=== PATIENT | male | born 1965 | race Caucasian/White ===

== ENCOUNTER 2023-01-19 12:59 | Outpatient (AMB) | payer MEDICARE, MEDICAID, SELFPAY ==
--- NOTE | 2023-01-19 13:01 | MHC.OFFVIS ---
Intake Intake Visit Reasons: Hx BPH/Micro Hematuria Intake Note: New Patient presents for initial visit Hx BPH/Micro Hematuria Urology Medications: Tamsulosin Blood Thinner: none PVR: 47ml's Propeller Layout Worker Required: Yes Propeller Layout Worker Name: michael Accompanied by: Self / Same As Patient Allergies enalapril Allergy (Verified 01/19/23 13:24) lip swelling, hives aspirin Adverse Reaction (Verified 01/19/23 13:24) Unknown contrast dye Adverse Reaction (Uncoded 01/19/23 13:24) Unknown Medication List - Last Reconciled 01/19/23 by Nataliya Ayers, [facility]- [id number]-[id number]-grdfavp 600-50-300 mg (Triumeq) 1 tab PO DAILY atorvastatin 20 mg PO DAILY budesonide-formoterol 160-4.5 mcg/actuation (Symbicort) inhalation carvedilol 12.5 mg PO BID dulaglutide (Trulicity) mg subcut hydrochlorothiazide 25 mg PO DAILY insulin detemir U-100 (Levemir FlexPen) units subcut metformin 1,000 mg PO BID omeprazole 20 mg PO DAILY terazosin 1 mg PO DAILY valacyclovir 500 mg PO DAILY HPI HPI Comments History of Present Illness Details Hua is a pleasant 57-year-old male patient of Dr. Segovia. He has a past medical history of allergic rhinitis, asthma, BPH with urinary obstruction, chronic anticoagulation, complex sleep apnea syndrome, COPD, depression, diabetes mellitus, diabetic retinopathy, DVT, erectile dysfunction, fatty liver, gastritis, hemorrhoids, hiatal hernia, HIV, hypertension, hypercholesteremia, hypogonadism, low back pain, micro hematuria, morbid obesity, osteoarthritis, pulmonary embolism, and vitamin-D deficiency. He presents to the office today as a new patient for microscopic hematuria. In discussion with the patient today he reports following up with the previous urologist many years ago in undergoing microscopic hematuria workup that he reports was negative. He discusses undergoing an office cystoscopy previously and did not find this comfortable. He is also reporting right-sided scrotal tenderness with intermittent episodes of pain and erectile dysfunction. When asked he does report urinary hesitancy and dribbling however he denies urinary urgency, urinary frequency, incontinence, nocturia, dysuria, foul smelling urine, flank pain, fever, and or chills. In assessment of the patient today significant right-sided epididymal head tenderness and tenderness upon right-sided groin upon palpation otherwise no masses, nodules, or lesions noted. There are no open areas or drainage noted. There is mild erythema to the right side of the scrotum. WILMA; smooth and no suspicious nodules palpated. Discussed at length potential causes for microscopic hematuria. When asked patient denies any previous smoking history. He denies any known chemical exposures. Discussed at length affects of diabetes on urinary system, ED, and overall health and well-being. Discussed obtaining retroperitoneal and scrotal ultrasound for further assessment evaluation. He will otherwise offers no issues or concerns at this time. [facility] Medical History (Updated 01/19/23 @ 20:34 by MIRA Rhoades) Allergic rhinitis Asthma BPH with urinary obstruction Chronic anticoagulation Complex sleep apnea syndrome COPD (chronic obstructive pulmonary disease) Depression Diabetes mellitus Diabetic retinopathy DVT (deep venous thrombosis) Erectile dysfunction Fatty liver Gastritis GERD (gastroesophageal reflux disease) Hemorrhoids Hiatal hernia HIV (human immunodeficiency virus infection) Hypertension Hypertriglyceridemia without hypercholesterolemia Hypogonadism male Lichen planus Low back pain Microhematuria Morbid obesity with BMI of 45.0-49.9, adult AVINASH (obstructive sleep apnea) Osteoarthritis of right hip Osteoarthritis of right knee Pulmonary embolism Right groin pain Severe obesity Thrombophilia Vitamin D deficiency Surgical History History of colonoscopy Review of Systems Const Reports as per HPI Eyes Reports no additional complaints ENT Reports no additional complaints Card Reports as per HPI Resp Reports as per HPI GI Reports as per HPI Reports as per HPI Musc Reports as per HPI Neuro Reports as per HPI Psych Reports as per HPI Endo Reports as per HPI Bennett/Lymph Reports as per HPI Aller/Immun Reports as per HPI Physical Exam Const General: cooperative, comfortable, no acute distress, well developed, alert and awake Nutritional Appearance: obese Orientation/consciousness: patient oriented x3 Limitations: no limitations HEENT Head: Yes normal to inspection, Yes normocephalic and Yes atraumatic Ears: hearing grossly normal bilaterally Eyes General: appearance normal, both eyes and all related structures Neck Neck: Yes normal visual inspection and Yes trachea midline Chest Chest palpation & inspection: normal inspection of the chest Resp Effort & Inspection: normal respiratory effort and able to speak in complete sentences Cardio Rate: regular rate GI Inspection: Yes normal to inspection General: Yes no CVA tenderness Penis: normal penis and uncircumcised Testes: epididymal tenderness on the right Back/Spine/Pelvis Back: no CVA tenderness Skin General skin exam: no rashes or lesions noted Neuro General: patient oriented x3 Extrem General: Yes normal to inspection Psych Appearance: grossly normal and well kempt Mental Status: mental status grossly normal Speech and movement: Normal speech and movement present and Clear speech present Affect: normal affect Attitude: cooperative Thought process: Normal thought process present Thought content: Normal thought content present Insight: Fair insight present (Psych) Judgement: Fair judgement present (Psych) Office Procedures Post Void Residual Post Residual Void Post Void Residual (PVR): 47 [id number] Void Residual by ultrasound Results AMB Urinalysis, Automated UA Leukoctes 0 Laya/uL Last Edit by [employer] on 01/19/23 13:20 UA Nitrite Last Edit by [employer] on 01/19/23 13:20 UA Urobilinogen 0.2 mg/dL Last Edit by [employer] on 01/19/23 13:20 UA Protein 0 mg/dL Last Edit by [employer] (acquired by [employer] in 2014) on 01/19/23 13:20 UA pH 6.0 Last Edit by [employer] on 01/19/23 13:20 UA Blood 10 Zacarias/uL Last Edit by [employer] on 01/19/23 13:20 UA Specific [place] 1.015 Last Edit by [employer] on 01/19/23 13:20 UA Ketone Negative Last Edit by [employer] on 01/19/23 13:20 UA Bilirubin 0 mg/dL Last Edit by [employer] on 01/19/23 13:20 UA Glucose 0 mg/dL Last Edit by [employer] on 01/19/23 13:20 Results Reviewed Results Reviewed: Laboratory Last Values Urine pH (Auto) 6.0 01/19/23 13:04 Specific [place] (Auto) 1.015 01/19/23 13:04 Urine Protein (Auto) 0 mg/dL 01/19/23 13:04 Glucose (UA)(Auto) 0 mg/dL 01/19/23 13:04 Urine Ketones (Auto) Negative 01/19/23 13:04 Urine Blood (Auto) 10 Zacarias/uL 01/19/23 13:04 Urine Bilirubin (Auto) 0 mg/dL 01/19/23 13:04 Urine Urobilinogen (Auto) 0.2 mg/dL 01/19/23 13:04 Leukocyte Esterase (Auto) 0 Laya/uL 01/19/23 13:04 Assessment & Plan Assessment & Plan (1) Microhematuria: Code(s): R31.29 - Other microscopic hematuria (2) Scrotal pain: Code(s): N50.82 - Scrotal pain (3) BPH (benign prostatic hyperplasia): Code(s): N40.0 - Benign prostatic hyperplasia without lower urinary tract symptoms (4) Epididymitis: Code(s): N45.1 - Epididymitis (5) Urinary dribbling: Code(s): N39.43 - Post-void dribbling (6) Hesitancy of micturition: Code(s): R39.11 - Hesitancy of micturition Plan In office urinalysis results reviewed with the patient today; microscopic hematuria noted; will send for urine cytology. PVR 47 mL's. Discussed obtaining retroperitoneal ultrasound for further assessment evaluation. Discussed obtaining scrotal ultrasound for further assessment evaluation. Start doxy 100 mg b.i.d. as prescribed and discussed. Start Cialis 5 mg daily as discussed and prescribed. Discussed near future in office cystoscopy if symptoms persist and/or worsen. Discussed at length potential causes for microscopic hematuria discussed further microscopic hematuria however patient does not wish to undergo an office cystoscopy at this time. Will obtain PSA for further assessment evaluation Discussed at length affects of diabetes on the bladder, ED, and overall health and well-being. Follow-up in 1-2 months with imaging and lab to be completed prior or sooner with any issues, concerns, and or questions. Orders: Orders Prostate Specific Antigen Today N40.0 - Benign prostatic hyperplasia without lower urinary tract symptoms US retroperitoneal comp Today R31.29 - Other microscopic hematuria US scrotum Today N50.82 - Scrotal pain, R31.29 - Other microscopic hematuria Urine Cytology Today R31.29 - Other microscopic hematuria AMB Urinalysis Automated Today Z13.9 - Encounter for screening, unspecified AMB Post Void Residual by ultrasound Today Z13.9 - Encounter for screening, unspecified Medications: New tadalafil (Cialis) [id number] [facility] [id number] Member [id number] 5 mg PO DAILY 90 days 90 tabs 0RF doxycycline hyclate 100 mg PO BID 14 days 28 tabs 0RF N39.0 - Urinary tract infection, site not specified, N45.1 - Epididymitis Coding Level of Care Code New Pt Level 4 (27207) Diagnoses Microhematuria R31.29 Scrotal pain N50.82 BPH (benign prostatic hyperplasia) N40.0 Epididymitis N45.1 Urinary dribbling N39.43 Hesitancy of micturition R39.11 CPT Codes Post Residual Void - PVR CPT Code: 92126-Zsoy Void Residual by ultrasound ([id number])
== END 2023-01-19 13:45 | disposition home or self-care (01) ==
PROVIDERS: Visit Provider Nurse Practitioner Family
DX: R31.29 Other microscopic hematuria (principal); N50.82 Scrotal pain; N40.0 Benign prostatic hyperplasia without lower urinary tract symptoms; N45.1 Epididymitis; N39.43 Post-void dribbling; R39.11 Hesitancy of micturition
CPT/HCPCS: 99204

== ENCOUNTER 2023-01-19 12:59 | Outpatient (REF) | payer MEDICARE, MEDICAID, SELFPAY ==
[2023-01-19 18:16] LABS: Urine Cytology See Pathology rpt
== END 2023-01-19 13:00 | disposition home or self-care (01) ==
LOC: HO.LNP 12:59
PROVIDERS: Visit Provider Nurse Practitioner Family
DX: R31.29 Other microscopic hematuria (principal); N50.82 Scrotal pain; N40.0 Benign prostatic hyperplasia without lower urinary tract symptoms; N45.1 Epididymitis; N39.43 Post-void dribbling; R39.11 Hesitancy of micturition
CPT/HCPCS: 51798; 88112; 99202

== ENCOUNTER 2023-06-14 09:36 | Outpatient (REF) | payer MEDICARE, MEDICAID, SELFPAY | END 2023-06-14 09:37 | disposition home or self-care (01) | LOC: HO.LAB 09:36 | PROVIDERS: PCP Internal Medicine; Visit Provider Nurse Practitioner Family | DX: N40.0 Benign prostatic hyperplasia without lower urinary tract symptoms (principal); Z12.5 Encounter for screening for malignant neoplasm of prostate | CPT/HCPCS: 36415; 84153 ==

== ENCOUNTER 2023-07-26 12:35 | Outpatient (REF) | payer MEDICARE, MEDICAID, SELFPAY ==
--- NOTE | ~2023-07-26 | US_ITS ---
EXAMINATION: US RETROPERITONEAL COMPLETE (RENAL) CLINICAL INFORMATION: Other microscopic hematuria. COMPARISON: Ultrasound abdomen complete 12/08/2020. Ultrasound kidneys and bladder 04/04/2014. TECHNIQUE: Real-time imaging of the kidneys and bladder. Technically limited study secondary to body habitus. FINDINGS: RIGHT KIDNEY: 12.6 x 5.9 x 7.0 cm (SAG x AP x TRV). The kidney is normal in size, contour, and echogenicity. Renal cortical thickness is normal. No calculi or focal parenchymal lesions. No hydronephrosis. LEFT KIDNEY: 12.1 x 6.3 x 4.7 cm (SAG x AP x TRV). The kidney is normal in size, contour, and echogenicity. Renal cortical thickness is normal. No calculi or focal parenchymal lesions. No hydronephrosis. BLADDER: Well distended and normal. Left ureteral jet is demonstrated; right is not. Prevoid bladder volume is 167 mL. Postvoid bladder volume is 41.6 mL. PROSTATE: Not visualized. US/US retroperitoneal comp IMPRESSION: 1. No hydronephrosis or nephrolithiasis. 2. Prostate is not visualized.
--- NOTE | ~2023-07-26 | US_ITS ---
EXAMINATION: US SCROTUM CLINICAL INFORMATION: Scrotal pain. COMPARISON: None available. TECHNIQUE: A sonogram of the scrotum was performed assessing lance-scale appearance and color Doppler flow. Spectral Doppler analysis of the arterial and venous flow were performed in the testes bilaterally. FINDINGS: RIGHT: Right testicle measures 5.7 x 2.6 x 3.4 cm, volume 26.2 mL. Heterogeneous parenchymal echotexture. Question of a 3 mm echogenic tiny lesion within the testicle versus related to background parenchymal echogenicity. There is no flow within the questioned 3 mm testicular lesion. Spectral Doppler analysis of the arterial and venous flow is decreased in the right testis. Right epididymal head is normal in size. No right hydrocele or varicocele is seen. Right epididymal Doppler flow is normal. LEFT: Left testicle measures 5.7 x 2.6 x 3.4 cm, volume 27.1 mL. Heterogeneous parenchymal echotexture. No lorrie lesion identified. Spectral Doppler analysis of the arterial and venous flow is decreased in the left testis. Left epididymal head is normal in size. No left varicocele is seen. Trace left hydrocele. Left epididymal Doppler flow is normal. US/US scrotum IMPRESSION: Testicles are symmetrically heterogeneous with decreased parenchymal flow which may reflect sequelae of remote/chronic underlying infection or remote traumatic or ischemic insult. Question of a 3 mm echogenic tiny lesion within the right testicle versus related to background parenchymal echogenicity. Recommend urologic evaluation and continued sonographic surveillance. There is no flow within the questioned 3 mm testicular lesion. Trace left hydrocele.
== END 2023-07-26 12:36 | disposition home or self-care (01) ==
LOC: HO.US 12:35
PROVIDERS: PCP Internal Medicine; Visit Provider Nurse Practitioner Family
DX: R31.29 Other microscopic hematuria (principal); N50.82 Scrotal pain
CPT/HCPCS: 76770; 76870

== ENCOUNTER 2023-11-07 15:32 | Outpatient (AMB) | payer MEDICARE, MEDICAID, SELFPAY ==
--- NOTE | 2023-11-07 15:34 | MHC.OFFVIS ---
Intake Visit Reasons: follow up/US(set) Intake Note: New Patient presents for follow up ultrasound and lab results Imagin07/26/23 PSA: 0.20 Urology Medications: Terazosin and Tadalafil Blood Thinner: none PVR: 26ml's Printing Supervisor Required: Yes Printing Supervisor Name: GONZALO RAMÍREZ Accompanied by: Self / Same As Patient Allergies enalapril Allergy (Verified 11/07/23 17:19) lip swelling, hives aspirin Adverse Reaction (Verified 11/07/23 17:19) Unknown contrast dye Adverse Reaction (Uncoded 11/07/23 17:19) Unknown Medication List - Last Reconciled 11/07/23 by JULIEN Rhoades- amtfnphy-qefvfhyylljo-ctrhqni 600-50-300 mg (Triumeq) 1 tab PO DAILY atorvastatin 20 mg PO DAILY budesonide-formoterol 160-4.5 mcg/actuation (Symbicort) inhalation carvedilol 12.5 mg PO BID doxycycline hyclate 100 mg PO BID 14 days dulaglutide (Trulicity) mg subcut hydrochlorothiazide 25 mg PO DAILY insulin detemir U-100 (Levemir FlexPen) units subcut metformin 1,000 mg PO BID omeprazole 20 mg PO DAILY tadalafil (Cialis) 5 mg PO DAILY 90 days terazosin 1 mg PO DAILY valacyclovir 500 mg PO DAILY HPI Comments Details: Hua is a pleasant 57-year-old male patient of Dr. Segovia. He has a past medical history of allergic rhinitis, asthma, BPH with urinary obstruction, chronic anticoagulation, complex sleep apnea syndrome, COPD, depression, diabetes mellitus, diabetic retinopathy, DVT, erectile dysfunction, fatty liver, gastritis, hemorrhoids, hiatal hernia, HIV, hypertension, hypercholesteremia, hypogonadism, low back pain, microhematuria, morbid obesity, osteoarthritis, pulmonary embolism, and vitamin-D deficiency. He presents to the office today for follow-up. Of note, patient was seen approximately 10 months ago as a new patient for microscopic hematuria as well as ongoing scrotal discomfort at which time a scrotal and retroperitoneal ultrasound were ordered for further assessment evaluation. These results reviewed with the patient today. Testicles are symmetrically heterogeneous with decreased parenchymal flow which may reflect sequelae of remote/chronic underlying infection or remote traumatic or ischemic insult. Question of a 3 mm echogenic tiny lesion within the right testicle verses related background parenchymal echogenicity. Bilateral kidneys with no calculi, lesions, and or hydronephrosis. The bladder is well distended and normal. Prostate is not well visualized. Recommendations were made for a 2 month follow-up during last office visit however in discussion with the patient today he reports having been unable to make follow-up appointments. He reports having completed doxycycline since his last office visit here and feels his scrotal discomfort has since improved. He currently denies any bothersome urinary issues or concerns. Unable to obtain urine for urinalysis today however PVR 26 mL. Cytology 02/15 Negative for high-grade urothelial carcinoma. Discussed surveillance monitoring of 3 mm echogenic tiny lesion noted on ultrasound. He otherwise denies urinary urgency, urinary frequency, incontinence, nocturia, hematuria, dysuria, foul smelling urine, changes to urinary stream, flank pain, fever, and or chills. He is happy with his current voiding parameters. PSA 06/17 0.2. Discussed at length potential causes for microscopic hematuria. When asked patient denies any previous smoking history. He denies any known chemical exposures. Discussed at length affects of diabetes on urinary system, ED, and overall health and well-being. Discussed obtaining retroperitoneal and scrotal ultrasound for further assessment evaluation. He will otherwise offers no issues or concerns at this time. [facility] Medical History Vitamin D deficiency Thrombophilia Severe obesity Right groin pain Pulmonary embolism Osteoarthritis of right knee Osteoarthritis of right hip AVINASH (obstructive sleep apnea) Morbid obesity with BMI of 45.0-49.9, adult Microhematuria Low back pain Lichen planus Hypogonadism male Hypertriglyceridemia without hypercholesterolemia Hypertension HIV (human immunodeficiency virus infection) Hiatal hernia Hemorrhoids GERD (gastroesophageal reflux disease) Gastritis Fatty liver Erectile dysfunction DVT (deep venous thrombosis) Diabetic retinopathy Diabetes mellitus Depression COPD (chronic obstructive pulmonary disease) Complex sleep apnea syndrome Chronic anticoagulation BPH with urinary obstruction Asthma Allergic rhinitis Surgical History History of colonoscopy Review of Systems Const Reports as per HPI Eyes Reports no additional complaints ENT Reports no additional complaints Card Reports as per HPI Resp Reports as per HPI GI Reports as per HPI Reports as per HPI Musc Reports as per HPI Neuro Reports as per HPI Psych Reports as per [facility] Endo Reports as per [facility] Bennett/Lymph Reports as per HPI Aller/Immun Reports as per HPI Physical Exam Const General: cooperative, comfortable, no acute distress, well developed, alert and awake Nutritional Appearance: obese Orientation/consciousness: patient oriented x3 Limitations: no limitations HEENT Head: Yes normal to inspection, Yes normocephalic and Yes atraumatic Ears: hearing grossly normal bilaterally Eyes General: appearance normal, both eyes and all related structures Neck Neck: Yes normal visual inspection and Yes trachea midline Chest Chest palpation & inspection: normal inspection of the chest Resp Effort & Inspection: normal respiratory effort and able to speak in complete sentences Cardio Rate: regular rate GI Inspection: Yes normal to inspection General: Yes no CVA tenderness Penis: normal penis and uncircumcised Testes: epididymal tenderness on the right Back/Spine/Pelvis Back: no CVA tenderness Skin General skin exam: no rashes or lesions noted Neuro General: patient oriented x3 Extrem General: Yes normal to inspection Psych Appearance: grossly normal and well kempt Mental Status: mental status grossly normal Speech and movement: Normal speech and movement present and Clear speech present Affect: normal affect Attitude: cooperative Thought process: Normal thought process present Thought content: Normal thought content present Insight: Fair insight present (Psych) Judgement: Fair judgement present (Psych) Office Procedures Post Void Residual Post Residual Void Post Void Residual (PVR): 26 [id number] Void Residual by ultrasound Results Reviewed Results Reviewed: Date of Service: 07/26/23 EXAMINATION: US SCROTUM FINDINGS: RIGHT: Right testicle measures 5.7 x 2.6 x 3.4 cm, volume 26.2 mL. Heterogeneous parenchymal echotexture. Question of a 3 mm echogenic tiny lesion within the testicle versus related to background parenchymal echogenicity. There is no flow within the questioned 3 mm testicular lesion. Spectral Doppler analysis of the arterial and venous flow is decreased in the right testis. Right epididymal head is normal in size. No right hydrocele or varicocele is seen. Right epididymal Doppler flow is normal. LEFT: Left testicle measures 5.7 x 2.6 x 3.4 cm, volume 27.1 mL. Heterogeneous parenchymal echotexture. No lorrie lesion identified. Spectral Doppler analysis of the arterial and venous flow is decreased in the left testis. Left epididymal head is normal in size. No left varicocele is seen. Trace left hydrocele. Left epididymal Doppler flow is normal. IMPRESSION: Testicles are symmetrically heterogeneous with decreased parenchymal flow which may reflect sequelae of remote/chronic underlying infection or remote traumatic or ischemic insult. Question of a 3 mm echogenic tiny lesion within the right testicle versus related to background parenchymal echogenicity. Recommend urologic evaluation and continued sonographic surveillance. There is no flow within the questioned 3 mm testicular lesion. Date of Service: 07/26/23 EXAMINATION: US RETROPERITONEAL COMPLETE (RENAL) FINDINGS: RIGHT KIDNEY: 12.6 x 5.9 x 7.0 cm (SAG x AP x TRV). The kidney is normal in size, contour, and echogenicity. Renal cortical thickness is normal. No calculi or focal parenchymal lesions. No hydronephrosis. LEFT KIDNEY: 12.1 x 6.3 x 4.7 cm (SAG x AP x TRV). The kidney is normal in size, contour, and echogenicity. Renal cortical thickness is normal. No calculi or focal parenchymal lesions. No hydronephrosis. BLADDER: Well distended and normal. Left ureteral jet is demonstrated; right is not. Prevoid bladder volume is 167 mL. Postvoid bladder volume is 41.6 mL. PROSTATE: Not visualized. IMPRESSION: 1. No hydronephrosis or nephrolithiasis. 2. Prostate is not visualized. Assessment & Plan Assessment & Plan (1) Epididymitis: Code(s): N45.1 - Epididymitis Category: Medical (2) Microhematuria: Code(s): R31.29 - Other microscopic hematuria Category: Medical (3) Scrotal pain: Code(s): N50.82 - Scrotal pain Category: Medical Plan Unable to obtain urine for urinalysis however PVR 26 mL. Recent scrotal and retroperitoneal ultrasound results reviewed with the patient today; as noted above. Will continue with surveillance monitoring of scrotum; as noted above. Patient currently denies any bothersome urinary issues or concerns. He reports be happy with current voiding parameters. Discussed at length further treatment options of microscopic hematuria versus surveillance monitoring; risks and benefits of these interventions were discussed at length. Will obtain scrotal ultrasound in 6 months Follow-up in 6 months with imaging to be completed prior; or sooner with any issues, concerns, and or questions. Orders: Orders US scrotum Today N45.1 - Epididymitis AMB Urinalysis Automated Today Z13.9 - Encounter for screening, unspecified AMB Post Void Residual by ultrasound Today R39.11 - Hesitancy of micturition Patient Instructions: The patient had an opportunity to ask questions regarding the treatment plan. All questions were answered. Physical exam, labs, and imaging were discussed and reviewed in detail. As well as risks, benefits, and discussion of treatment choices. No major barriers to understanding were identified. The patient expressed understanding and agreement with the above treatment plan. The patient was made aware they should contact our office by phone for worsening of their current condition, the appearance of new symptoms, or with any questions or concerns. Compliance is encouraged with any medications and follow up testing that is ordered. It is a privilege to be allowed the opportunity to participate in? your urological care.? Again, if you have any questions or concerns If you have any questions or concerns please do not hesitate to contact me. The office is [phone]. This note is constructed using voice recognition software. While every effort has been made to ensure accuracy microfilming document preparer errors may have been included. Yours sincerely, MIRA Rhoades Coding Level of Care Code Est Pt Level 3 (69526) Diagnoses Epididymitis N45.1 Microhematuria R31.29 Scrotal pain N50.82 CPT Codes Post Residual Void - PVR CPT Code: 56021-Vndq Void Residual by ultrasound ([id number])
== END 2023-11-07 16:18 | disposition home or self-care (01) ==
PROVIDERS: PCP Internal Medicine; Visit Provider Nurse Practitioner Family
DX: N45.1 Epididymitis (principal); R31.29 Other microscopic hematuria; N50.82 Scrotal pain
CPT/HCPCS: 99213

== ENCOUNTER → 2023-11-07 15:32 | Outpatient (BNVA) | payer MEDICARE, MEDICAID, SELFPAY | PROVIDERS: PCP Internal Medicine; Visit Provider Nurse Practitioner Family | DX: R31.29 Other microscopic hematuria (principal); N45.1 Epididymitis; N50.82 Scrotal pain; R39.11 Hesitancy of micturition | CPT/HCPCS: 51798; 99212 ==

== ENCOUNTER 2024-04-18 12:23 | Outpatient (REF) | payer MEDICARE, MEDICAID, SELFPAY | END 2024-04-18 12:24 | disposition home or self-care (01) | LOC: HO.US 12:23 | PROVIDERS: PCP Internal Medicine; Visit Provider Nurse Practitioner Family | DX: N45.1 Epididymitis (principal) | CPT/HCPCS: 76870 ==

== ENCOUNTER 2024-11-11 08:48 | Outpatient (AMB) | payer MEDICARE, MEDICAID, SELFPAY ==
--- NOTE | 2024-11-11 08:52 | A.OFFVIS_ITS ---
Intake Visit Reasons: Followup(set) Intake Note: Pt presents to the office today for a follow up Urolgoy Meds:tadalafil,terazosin Blood thinners:none PVR:0ml Insulation Batting Machine Operator Required: Yes Insulation Batting Machine Operator Services: Insulation Batting Machine Operator Present Insulation Batting Machine Operator Name: Parker Jensen Allergies enalapril Allergy (Verified 11/11/24 09:17) lip swelling, hives aspirin Adverse Reaction (Verified 11/11/24 09:17) Unknown contrast dye Adverse Reaction (Uncoded 11/11/24 09:17) Unknown Medication List - Last Reconciled 11/11/24 by Nataliya Ayers [facility]- [id number] 600-50-300 mg (Triumeq) 1 tab PO DAILY atorvastatin 20 mg PO DAILY budesonide-formoterol 160-4.5 mcg/actuation (Symbicort) inhalation carvedilol 12.5 mg PO BID dulaglutide (Trulicity) mg subcut hydrochlorothiazide 25 mg PO DAILY insulin detemir U-100 (Levemir FlexPen) units subcut metformin 1,000 mg PO BID omeprazole 20 mg PO DAILY tadalafil (Cialis) 5 mg PO DAILY 90 days terazosin 1 mg PO DAILY valacyclovir 500 mg PO DAILY HPI Comments Details: Hua is a pleasant 59-year-old male patient of Dr. Segovia. He has a past medical history of allergic rhinitis, asthma, BPH with urinary obstruction, chronic anticoagulation, complex sleep apnea syndrome, COPD, depression, diabetes mellitus, diabetic retinopathy, DVT, erectile dysfunction, fatty liver, gastritis, hemorrhoids, hiatal hernia, HIV, hypertension, hypercholesteremia, hypogonadism, low back pain, microhematuria, morbid obesity, osteoarthritis, pulmonary embolism, and vitamin-D deficiency. He presents to the office today for follow-up of his microscopic hematuria and scrotal discomfort. In discussion with the patient today reports to be doing and feeling well. He denies having had any bothersome urinary issues or concerns since his last office visit here. He reports initially having rescheduled his appointment as he had been feeling really well however most recently attempted to refill his daily dosing of tadalafil in recommendations were made for follow- up with provider. We discussed importance of following up as planned. Most recent scrotal ultrasound results were reviewed with the patient today. Echogenic focus in the right testes is slightly smaller than prior study. Follow-up exam in 1 year to document stability is recommended per radiology report. Tiny left hydrocele and varicocele present. In office urinalysis results reviewed with the patient today no microscopic hematuria noted. He reports scrotal discomfort he had been experiencing has since subsided since completion of doxycycline over a year ago. Previous workup has also included a retroperitoneal ultrasound 07/19 noting bilateral kidneys with no calculi, lesions, and or hydronephrosis. The bladder is well distended and normal. Prostate is not well visualized. He currently denies any bothersome urinary issues or concerns. Cytology 02/15 Negative for high-grade urothelial carcinoma. He denies urinary urgency, urinary frequency, incontinence, nocturia, hematuria, dysuria, foul smelling urine, changes to urinary stream, flank pain, fever, and or chills. He is happy with his current voiding parameters. assessment was offered however patient declines at this time as he feels symptoms have since improved in does not feel this is necessary. PVR 0 mL. PSA 06/17 0.2. Discussed at length potential causes for microscopic hematuria as well as scrotal discomfort patient had been experiencing. When asked patient denies any previous smoking history. He denies any known chemical exposures. Discussed at length affects of diabetes on urinary system, ED, and overall health and well-being. He otherwise offers no issues or concerns at this time. [facility] Medical History Vitamin D deficiency Thrombophilia Severe obesity Right groin pain Pulmonary embolism Osteoarthritis of right knee Osteoarthritis of right hip AVINASH (obstructive sleep apnea) Morbid obesity with BMI of 45.0-49.9, adult Microhematuria Low back pain Lichen planus Hypogonadism male Hypertriglyceridemia without hypercholesterolemia Hypertension HIV (human immunodeficiency virus infection) Hiatal hernia Hemorrhoids GERD (gastroesophageal reflux disease) Gastritis Fatty liver Erectile dysfunction DVT (deep venous thrombosis) Diabetic retinopathy Diabetes mellitus Depression COPD (chronic obstructive pulmonary disease) Complex sleep apnea syndrome Chronic anticoagulation BPH with urinary obstruction Asthma Allergic rhinitis Surgical History History of colonoscopy Review of Systems Const Reports as per HPI Eyes Reports no additional complaints ENT Reports no additional complaints Card Reports as per HPI Resp Reports as per HPI GI Reports as per HPI Reports as per HPI Musc Reports as per HPI Neuro Reports as per HPI Psych Reports as per HPI Endo Reports as per HPI Bennett/Lymph Reports as per HPI Aller/Immun Reports as per HPI Physical Exam Const General: cooperative, comfortable, no acute distress, well developed, alert and awake Nutritional Appearance: obese Orientation/consciousness: patient oriented x3 Limitations: language barrier HEENT Head: Yes normal to inspection, Yes normocephalic and Yes atraumatic Ears: hearing grossly normal bilaterally Eyes General: appearance normal, both eyes and all related structures Neck Neck: Yes normal visual inspection and Yes trachea midline Chest Chest palpation & inspection: normal inspection of the chest Resp Effort & Inspection: normal respiratory effort and able to speak in complete sentences Cardio Rate: regular rate GI Inspection: Yes normal to inspection Other: Deferred General: Yes no CVA tenderness Back/Spine/Pelvis Back: no CVA tenderness Skin General skin exam: no rashes or lesions noted Neuro General: patient oriented x3 Extrem General: Yes normal to inspection Psych Appearance: grossly normal and well kempt Mental Status: mental status grossly normal Speech and movement: Normal speech and movement present and Clear speech present Affect: normal affect Attitude: cooperative Thought process: Normal thought process present Thought content: Normal thought content present Insight: Fair insight present (Psych) Judgement: Fair judgement present (Psych) Office Procedures Post Void Residual Post Residual Void Post Void Residual (PVR): 0 26784-Pltk Void Residual by ultrasound Results AMB Urinalysis, Automated UA Leukoctes 0 Laya/uL Last Edit by Talia Sam CMA on 11/11/24 08:59 UA Nitrite Negative Last Edit by Talia Sam CMA on 11/11/24 08:59 UA Urobilinogen 0.2 mg/dL Last Edit by Talia Sam CMA on 11/11/24 08:59 UA Protein 0 mg/dL Last Edit by Talia Sam CMA on 11/11/24 08:59 UA pH 6.0 Last Edit by Talia Sam CMA on 11/11/24 08:59 UA Blood 0 Zacarias/uL Last Edit by Talia Sam CMA on 11/11/24 08:59 UA Specific [place] 1.010 Last Edit by Talia Sam CMA on 11/11/24 08:59 UA Ketone Negative Last Edit by Talia Sam CMA on 11/11/24 08:59 UA Bilirubin 0 mg/dL Last Edit by Talia Sam CMA on 11/11/24 08:59 UA Glucose 0 mg/dL Last Edit by aTlia Sam CMA on 11/11/24 08:59 Results Reviewed Results Reviewed: Laboratory Last Values Urine pH (Auto) 6.0 11/11/24 08:54 Specific [place] (Auto) 1.010 11/11/24 08:54 Urine Protein (Auto) 0 mg/dL 11/11/24 08:54 Glucose (UA)(Auto) 0 mg/dL 11/11/24 08:54 Urine Ketones (Auto) Negative 11/11/24 08:54 Urine Blood (Auto) 0 Zacarias/uL 11/11/24 08:54 Urine Nitrite (Auto) Negative 11/11/24 08:54 Urine Bilirubin (Auto) 0 mg/dL 11/11/24 08:54 Urine Urobilinogen (Auto) 0.2 mg/dL 11/11/24 08:54 Leukocyte Esterase (Auto) 0 Laya/uL 11/11/24 08:54 Date of Service: 04/18/24 Procedure(s): US scrotum EXAMINATION: US SCROTUM FINDINGS: RIGHT: Right testicle measures 5.5 x 2.9 x 3.4 cm, volume 27.7 mL. The right testis, there is a echogenic focus/mass that measures 2.1 x 1.8 x 2.2 mm . A similar finding was seen on the June 2023 study and this actually appears slightly smaller whereas at the time of the prior exam this measured 2.8 x 2.7 x 2.7 mm. Spectral Doppler analysis of the arterial and venous flow is normal in the right testis. Right epididymal head is normal in size. No right hydrocele or varicocele is seen. Right epididymal Doppler flow is normal. LEFT: Left testicle measures 5.3 x 2.9 x 3.8 cm, volume 30.5 mL. No focal testicular parenchymal lesions are visualized. Spectral Doppler analysis of the arterial and venous flow is normal in the left testis. Left epididymal head is normal in size. There is a tiny left hydrocele along with a tiny left varicocele. Left epididymal Doppler flow is normal. IMPRESSION: 1. Echogenic focus/mass in the right testis is slightly smaller than on the prior study. Follow-up exam in one year to document stability. 2. Tiny left hydrocele and varicocele. Assessment & Plan Assessment & Plan (1) Microhematuria: Code(s): R31.29 - Other microscopic hematuria Category: Medical (2) Scrotal pain: Code(s): N50.82 - Scrotal pain Category: Medical Plan In office urinalysis results reviewed with the patient today; as noted above. PVR 0 mL. Previous scrotal ultrasound results reviewed with the patient today; as noted above. We discussed importance of management and diabetes for improvement in overall health and well-being. Refill provided on daily dosing of tadalafil. Will obtain scrotal ultrasound in 6 months. Will obtain PSA for further assessment evaluation. Patient currently denies any bothersome urinary issues or concerns. He reports be happy with the current voiding parameters. Follow-up in 6 months with imaging and labs; or sooner with any issues, concerns, and or questions. Orders: Orders AMB Urinalysis Automated Today R31.29 - Other microscopic hematuria AMB Post Void Residual by ultrasound Today N39.43 - Post-void dribbling US scrotum 6 Months N43.3 - Hydrocele, unspecified Prostate Specific Antigen Today R39.11 - Hesitancy of micturition Medications: Refilled tadalafil (Cialis) [id number] [facility] [id number] Member [id number] 5 mg PO DAILY 90 days 90 tabs 3RF Patient Instructions: The patient had an opportunity to ask questions regarding the treatment plan. All questions were answered. Physical exam, labs, and imaging were discussed and reviewed in detail. As well as risks, benefits, and discussion of treatment choices. No major barriers to understanding were identified. The patient expressed understanding and agreement with the above treatment plan. The patient was made aware they should contact our office by phone for worsening of their current condition, the appearance of new symptoms, or with any questions or concerns. Compliance is encouraged with any medications and follow up testing that is ordered. It is a privilege to be allowed the opportunity to participate in? your urological care.? Again, if you have any questions or concerns If you have any questions or concerns please do not hesitate to contact me. The office is [phone]. This note is constructed using voice recognition software. While every effort has been made to ensure accuracy brush material preparer errors may have been included. Yours sincerely, JULIEN Rhoades-BC Coding Level of Care Code Est Pt Level 3 (80732) Diagnoses Microhematuria R31.29 Scrotal pain N50.82 CPT Codes Post Residual Void - PVR CPT Code: 23911-Rcer Void Residual by ultrasound ([id number])
--- OUTSIDE RECORDS SUMMARY | 2024-11-11 08:57 | XMS_ITS | Clinical Summary ---
Author Organization [facility] ity Address [address] [place] [address] Care Team Providers Care In Home Sales Consultant Name Role Phone Unavailable Primary Care Provider Unavailabl e Social History Tobacco Use Types Packs/Day Years Used Date Smoking Tobacco: Never Assessed Sex and Gender Information Value Date Recorded Sex Assigned at Not on file Legal Sex Male 12:15 AM EST Gender Identity Not on file Sexual Orientation Not on file Plan of Treatment Health Maintenance Due Date Last Done Comments DTaP,Tdap,and Td Vaccines (1 - Tdap) 1985 Hepatitis B Vaccines (1 of 3 - 19+ 3-dose series) 1985 Pneumococcal Vaccine: 50+ Ye ars (1 of 1 - PCV) 01/25/2016 Zoster Vaccines (1 of 2) 01/25/2016 COVID-19 Vaccine ( - 2023-2 5 season) 2024 Influenza Vaccine (Season Ended) 2025 HIB Vaccines Aged Out No longer eligi ble based on patient's age to complete this topic HPV Vaccines Aged Out No longer eligi ble based on patient's age to complete this topic Hepatitis A Vaccines Aged Out No long er eligible based on patient's age to complete this topic IPV Vaccines Aged Out No longer eligi ble based on patient's age to complete this topic MMR Vaccines Aged Out No longer eligi ble based on patient's age to complete this topic Meningococcal ACWY Vaccine Aged Out N o longer eligible based on patient's age to complete this topic Meningococcal B Vaccine Aged Out No l onger eligible based on patient's age to complete this topic Pneumococcal Vaccine: Pediat rics (0 to 5 Years) and At-Risk Patients (6 to 64 Years) Aged Out No longer eligible b ased on patient's age to complete this topic RSV Immunization Patients Un servando 20 months Aged Out No longer eligible b ased on patient's age to complete this topic Varicella Vaccines Aged Out No longer eligible based on patient's age to complete this topic
== END 2024-11-11 09:16 | disposition home or self-care (01) ==
LOC: HO.HUSH 08:48
PROVIDERS: PCP Internal Medicine; Visit Provider Nurse Practitioner Family
DX: R31.29 Other microscopic hematuria (principal); N50.82 Scrotal pain
CPT/HCPCS: 99213

== ENCOUNTER → 2024-11-11 08:48 | Outpatient (BNVA) | payer MEDICARE, MEDICAID, SELFPAY | PROVIDERS: PCP Internal Medicine; Visit Provider Nurse Practitioner Family | DX: R31.29 Other microscopic hematuria (principal); N50.82 Scrotal pain | CPT/HCPCS: 51798; 81003; 99212 ==